=== PATIENT | female | born 1955 | race Caucasian/White ===

== ENCOUNTER → 2017-11-20 07:50 | Day surgery (SDC) | payer MEDICARE, MEDICAID ==
[~2017-11-20 07:50] MED LIST: Diazepam TAB(*) 5 MG ONE; Lidocaine 1% INJ* 10 MG/ML 30 ML SDV ONE; Midazolam* 1 MG/ML 5 ML VIAL (5 MG) ONE; ceFAZolin 2 GM in NS 0.9% 100 ml IVPB ONE; ceFAZolin VIAL 1 GM in NS *SYRINGE * * 10 ML ONE; fentaNYL* 50 MCG/ML 2 ML VIAL (100 MCG VIAL) ONE
[2017-11-20 11:26] VITALS: BP 140/77
--- NOTE | 2017-11-21 13:15 | OP ---
DATE OF OPERATION: 11/20/17 - [facility] CATH DATE OF : 59. SURGEON: Michael Leung MD. ANESTHESIA: Local anesthesia with conscious sedation. PRE-OP DIAGNOSES: Cardiomyopathy, ICD at elective replacement indicator. POST-OP DIAGNOSES: Cardiomyopathy, ICD at elective replacement indicator. OPERATIVE PROCEDURE: Single chamber ICD generator change. ESTIMATED BLOOD LOSS: Nil. COMPLICATIONS: None. INDICATION: The patient is a 62-year-old female with a history of non-ischemic cardiomyopathy, who had an ICD implanted in 2007. She has been followed in our office. Her ICD has reached elective replacement indicator and generator change was arranged. DESCRIPTION OF PROCEDURE: The patient was brought to the procedure room in a fasting state. Informed consent had been obtained prior to the procedure. All labs had been reviewed. The patient was placed supine on the procedure table. Her left deltopectoral area was cleaned and draped in the usual fashion. Lidocaine 1% was used for local anesthesia. Over her previous incision site, local anesthesia was infiltrated and a 4 cm was made. Blunt dissection was carried down to the fiber sheath. The fiber sheath was opened and the ICD was removed from the pocket. The ICD is a [employer] Model 1207, serial # [id number]. The ICD lead was tested and noted to be functioning normally. The ICD lead is a Riata lead, which is under advisement, the ICD lead is completely functioning normally. The patient had a new ICD attached appropriately to the ventricular lead. The new generator is a [employer] model 1357, serial # [id number]. The device was placed in the pocket. The surgical incision was closed in three layers. The patient returned to the holding area in stable condition. [id number]/[facility] #: [id number] [facility]
== END | disposition home or self-care (01) ==
LOC: CHICATH 07:50
PROVIDERS: ATTEND Specialist
DX: I42.9 Cardiomyopathy, unspecified (principal); Z95.810 Presence of automatic (implantable) cardiac defibrillator
CPT/HCPCS: 33249; 88300; 99156; 99157; A9270-GY; C1722; J0690; J2250; J3010

== ENCOUNTER 2018-06-22 08:57 | Emergency (ER) | payer MEDICARE ==
--- NOTE | 2018-06-22 09:04 | UC ---
Lower Extremity/Ankle HPI - HPI Summary HPI Summary: 63 yo with foot pain. Accidental fall 3 years ago causing initial injury. Has fallen recently. MD: MEHREEN; ICD hx noted. Nurse's note: R foot pain, has been getting worse in the past few weeks. States old injury in R foot, nothing recent. Pain is on top and bottom of foot, worse with ambulation. - History of Current Complaint Stated Complaint: FOOT PAIN Time Seen by Provider: 06/22/18 09:02 Hx Obtained From: Patient ?: No Aggravating Factor(s): Standing, Ambulation Able to Bear Weight: Yes - Allergies/Home Medications Allergies/Adverse Reactions: Allergies Allergy/AdvReac Type Severity Reaction Status Date / Time prednisone Allergy Anxiety Verified 06/22/18 09:17 ENVIRONMENTAL Allergy Intermediate Eyes Uncoded 06/22/18 09:17 Itchy/Swollen/Red/Watery SEASONAL Allergy Intermediate Runny Nose Uncoded 06/22/18 09:17 Home Medications: Home Medications ARIPiprazole TAB* [Abilify TAB*] 5 mg PO BEDTIME 06/22/18 [History Confirmed ] Cholecalciferol (Vitamin D3) [D 5000] 5,000 unit PO SEE INSTRUCTIONS 06/22/18 [ History Confirmed 06/22/18] Escitalopram Oxalate [Lexapro 20 mg] 20 mg PO DAILY 06/22/18 [History Confirmed 06/22/18] Multivitamins/Minerals TAB* [Theragran/minerals TAB*] 1 tab PO DAILY 06/22/18 [ History Confirmed 06/22/18] PMH/Surg Hx/FS Hx/Imm Hx - Additional Past Medical History Additional PMH: Angina, ND, ICD, bipolar; disabled. Previously Healthy: Yes Cardiovascular History: Cardiac Disease, Hypertension, Pacemaker/ICD Psychological History: Bipolar Disorder - Surgical History Surgical History: Yes Surgery Procedure, Year, and Place: partial hysterectomy - Family History Known Family History: Positive: Cardiac Disease, Other - arthritis - Social History Alcohol Use: None Substance Use Type: None Have You Smoked in the Last Year: No Review of Systems All Other Systems Reviewed And Are Negative: Yes Constitutional: Positive: Negative Skin: Positive: Negative Eyes: Positive: Negative ENT: Positive: Negative Respiratory: Positive: Negative Cardiovascular: Positive: Negative Gastrointestinal: Positive: Negative Genitourinary: Positive: Negative Motor: Positive: Negative Neurovascular: Positive: Negative Musculoskeletal: Positive: Arthralgia - above and below, Edema - right foot dorsum Neurological: Positive: Negative Psychological: Positive: Negative Is Patient Immunocompromised?: No Physical Exam Triage Information Reviewed: Yes Appearance: Well-Appearing Vital Signs Reviewed: Yes Eye Exam: Normal ENT Exam: Normal Dental Exam: Normal Neck exam: Normal Neck: Positive: 1 Respiratory Exam: Normal Respiratory: Positive: Chest non-tender, Lungs clear, Normal breath sounds Cardiovascular Exam: Normal Cardiovascular: Positive: RRR, Pulses Normal Abdominal Exam: Normal Abdomen Description: Positive: Nontender, No Organomegaly, Soft Musculoskeletal Exam: Normal Musculoskeletal: Positive: Edema @ - RIGHT FOOT, DORSUM; TENDER DORSUM AND VOLAR WELL MEDIAL ASPECT INFERIOR TO THE MEDIAL MALLEOLUS. Neurological Exam: Normal Psychological Exam: Normal Skin Exam: Normal Lower Extremity Course/Dx - Course Course Of Treatment: 63 yo with foot pain. Accidental fall 3 years ago causing initial injury. Has fallen recently. X RAY: HEEL SPURS. FIRST MTP OSTEOARTHRITIS. NO ACUTE OSSEOUS INJURY. Diagnosis is tendonitis dorsum of right foot; plantar fasciitis, volar. Patient given yuni, boot; will elevate use warm soaks in the morning; start using a walker, and follow up with own physician. - Differential Dx/Diagnosis Differential Diagnosis/HQI/PQRI: Fracture (Closed), Sprain, Strain, Tendonitis Provider Diagnosis: Tendonitis of ankle or foot Discharge - Sign-Out/Discharge Documenting (check all that apply): Post-Discharge Follow Up All imaging exams completed and their final reports reviewed: Yes - Discharge Plan Condition: Stable Disposition: HOME Patient Education Materials: Tendinitis (ED) Referrals: Magaly Bonner MD [Primary Care Provider] - Additional Instructions: WE DISCUSSED: You have tendonitis around the inner ankle on the right and on the top of your foot; you also have plantar fasciitis. Use yuni, boot, elevate; warm moist heat in the morning; ice during the day for pain as we discussed. Use walker.Occupational therapy to evaluate home situation. Recheck at any time for increased pain or disability. This may take 2-3 months to resolve fully. - Billing Disposition and Condition Condition: STABLE Disposition: Home
[2018-06-22 09:16] VITALS: BP 121/67
== END 2018-06-22 10:35 | disposition home or self-care (01) ==
LOC: UCEAST 08:57
DX: M65.879 Other synovitis and tenosynovitis, unspecified ankle and foot (principal); M77.31 Calcaneal spur, right foot; Z95.810 Presence of automatic (implantable) cardiac defibrillator
CPT/HCPCS: 99213; G0463

== ENCOUNTER 2018-09-28 11:50 | Inpatient (IN) | payer MEDICARE ==
--- NOTE | 2018-09-28 12:11 | ED ---
Psychiatric Complaint - HPI Summary HPI Summary: This patient is a 68 year old female presenting to [facility] with a chief complaint of SI. Patient states that she is going through several stresses in life and work. She states that it is too overwhelming and she just wants to . Patient states she has to think about living arrangements, what to do with her elderly cat, among other concerns. Patient has a psychiatrist and a therapist. Today, patient took 5 25mg vistaril pills instead of her usual dosage and her daughter brought her to the ED. - History Of Current Complaint Chief Complaint: EDOverdose Time Seen by Provider: 09/28/18 12:01 Hx Obtained From: Patient Onset/Duration: Still Present Timing: Constant Severity Currently: Moderate Character: Depressed Aggravating Factor(s): Nothing Alleviating Factor(s): Nothing Has Suicidal: Reports: Thoughts, Demonstrates Gesture - pill overdose - Allergies/Home Medications Allergies/Adverse Reactions: Allergies Allergy/AdvReac Type Severity Reaction Status Date / Time prednisone Allergy Anxiety Verified 06/22/18 09:17 ENVIRONMENTAL Allergy Intermediate Eyes Uncoded 06/22/18 09:17 Itchy/Swollen/Red/Watery SEASONAL Allergy Intermediate Runny Nose Uncoded 06/22/18 09:17 PMH/Surg Hx/FS Hx/Imm Hx Previously Healthy: No Endocrine/Hematology History: Denies: Hx Diabetes Cardiovascular History: Reports: Hx Angina, Hx Hypertension, Hx Pacemaker/ICD Respiratory History: Reports: Hx Asthma Denies: Hx Chronic Obstructive Pulmonary Disease (COPD) Opthamlomology History: Denies: Hx Legally Blind EENT History: Denies: Hx Deafness Psychiatric History: Reports: Hx Bipolar Disorder - Surgical History Surgery Procedure, Year, and Place: partial hysterectomy Infectious Disease History: No Infectious Disease History: Denies: Traveled Outside the [place] in Last 30 Days - Family History Known Family History: Positive: Cardiac Disease, Other - arthritis - Social History Alcohol Use: None Hx Substance Use: No Substance Use Type: Reports: None Hx Tobacco Use: No Smoking Status (MU): Never Smoked Tobacco Have You Smoked in the Last Year: No Review of Systems Negative: Fever Positive: Depressed, Other - SI All Other Systems Reviewed And Are Negative: Yes Physical Exam - Summary Physical Exam Summary: Appearance: well appearing, no pain distress Skin: warm, dry, reflects adequate perfusion Head/face: normal Eyes: EOMI, CHRISTIE ENT: mucous membranes moist Neck: supple, non-tender Respiratory: CTA, breath sounds present Cardiovascular: RRR, pulses symmetrical Abdomen: non-tender, soft Bowel Sounds: present Musculoskeletal: normal, strength/ROM intact Neuro: normal, sensory motor intact, A&Ox3 Psych: flat affect, mild anxiety, plan to overdose with pills Triage Information Reviewed: Yes Vital Signs On Initial Exam: Initial Vitals Temp Pulse Resp BP Pulse Ox 98.2 F 79 16 100/71 94 09/28/18 11:56 09/28/18 11:56 09/28/18 11:56 09/28/18 11:56 09/28/18 11:56 Vital Signs Reviewed: Yes Diagnostics - Vital Signs Vital Signs Temp Pulse Resp BP Pulse Ox 09/28/18 11:56 98.2 F 79 16 100/71 94 - Laboratory Result Diagrams: 09/28/18 12:21 09/28/18 12:21 Lab Statement: Any lab studies that have been ordered have been reviewed, and results considered in the medical decision making process. - EKG 1205 Cardiac Rate: NL - 72 BPM EKG Rhythm: Sinus Rhythm Summary of EKG Findings: An EKG, taken 1205, reveals NSR (72 BPM), normal axis, normal intervals, normal ST. Re-Evaluation - Re-Evaluation First Eval Re-Evaluation Time: 13:15 Change: Unchanged Comment: Patient continues to display no signs of her drug ingestion. Course/Dx - Course Course Of Treatment: Patient was medically evaluated and cleared for mental health evaluation. Following evaluation of his elected that the psychiatrist that she be admitted for further evaluation treatment. - Differential Dx/Clinical Impression Provider Diagnosis: Bipolar disorder - Physician Notifications Discussed Care Of Patient With: Candie Aguilar - Psychiatrist Time Discussed With Above Provider: 16:05 - Per E, Dr. Aguilar diagnoses the patient with bipolar disorder. Patient is agreeable to voluntary admission. Patient Is Medically Stable For: Psych Evaluation Discharge - Sign-Out/Discharge Documenting (check all that apply): Patient Departure Patient Received Moderate/Deep Sedation with Procedure: No - Discharge Plan Condition: Fair Disposition: ADMITTED TO [facility] - Billing Disposition and Condition Condition: FAIR Disposition: Admitted to [facility] - Attestation Statements Document Initiated by Scribe: Yes Documenting Scribe: Emmanuel Ham Provider For Whom Scribe is Documenting (Include Credential): Grey Patton MD Scribe Attestation: IEmmanuel, scribed for Grey Patton MD on 09/28/18 at 1858. Scribe Documentation Reviewed: Yes Provider Attestation: The documentation as recorded by the Emmanuel diaz accurately reflects the service I personally performed and the decisions made by me, Grey Patton MD Status of Scribe Document: Viewed
[2018-09-28 12:31] LABS: ABS Basophils 0.1 10^3/ul (0-0.2); ABS Eosinophils 0.1 10^3/ul (0-0.6); ABS Lymphocytes 1.8 10^3/ul (1.0-4.8); ABS Monocytes 0.6 10^3/ul (0-0.8); ABS Neutrophils 6.8 10^3/ul (1.5-7.7); ABS Nucleated RBC 0 10^3/ul; Hematocrit 43 % (33-41); Hemoglobin 14.7 g/dL (12.0-16.0); Lymphocyte % 18.9 %; Mean Corpuscular HGB Conc 34 g/dL (31-36); Mean Corpuscular Hemoglobin 30 pg (27-31); Mean Corpuscular Volume 89 fL (80-97); Mean Platelet Volume 9.8 fL (7.4-10.4); Nucleated Red Blood Cells % 0; Platelet Count 291 10^3/uL (150-450); Red Blood Count 4.87 10^6 /uL (3.70-4.87); Red Cell Distribution Width 13 % (10.5-15); White Blood Count 9.3 10^3/uL (3.5-10.8)
[2018-09-28 12:44] LABS: ALT 17 U/L (7-52); AST 19 U/L (13-39); Albumin 4.2 g/dL (3.2-5.2); Albumin/Globulin Ratio 1.6 (1-3); Alkaline Phosphatase 87 U/L (34-104); Anion Gap 7 mmol/L (2-11); BUN/Creatinine Ratio 18.1 (8-20); Blood Urea Nitrogen 13 mg/dL (6-24); CO2 Carbon Dioxide 27 mmol/L (22-32); Calcium 9.4 mg/dL (8.6-10.3); Chloride 107 mmol/L (101-111); EGFR African American 99.6 (>60); EGFR Non-African American 82.3 (>60); Globulin 2.6 g/dL (2-4); Glucose 102 mg/dL (70-100); Potassium 4.1 mmol/L (3.5-5.0); Sodium 141 mmol/L (135-145); Total Protein 6.8 g/dL (6.4-8.9)
[2018-09-28 13:11] LABS: Acetaminophen < 15 mcg/mL; Alcohol < 10 mg/dL (<10); Salicylate < 2.50 mg/dL (<30)
[2018-09-28] MEDS ORDERED: Ondansetron ODT TAB* 4 MG PO ONE (13:15)
[2018-09-28 13:27] LABS: TSH (Thyroid Stimulating Horm) 1.79 mcIU/mL (0.34-5.60)
[2018-09-28] MEDS: Potassium Chlor TAB* 20 MEQ TAB.ER PO SCH (20:56)
[2018-09-28] MEDS: Carvedilol TAB* 6.25 MG PO SCH (20:56)
[2018-09-28] MEDS: Al Hydrox/Mg Hydrox/Simet LIQ* 30 ML UDC PO PRN (20:58)
[2018-09-28] MEDS: Acetaminophen TAB* 325 MG PO PRN (20:59)
[2018-09-29] MEDS ORDERED: ESCITALOPRAM 10 MG PO SCH (09:00)
[2018-09-29] MEDS: BIOTIN PO SCH (09:10)
[2018-09-29] MEDS: Vitamin THERAPEUTIC TAB PO SCH (09:11)
[2018-09-29] MEDS: Multivitamins/Minerals TAB PO SCH (09:11)
[2018-09-29] MEDS: Pantoprazole TAB * 40 MG TAB PO SCH (09:11)
[2018-09-29] MEDS: Furosemide TAB* 40 MG PO SCH (09:11)
[2018-09-29] MEDS: Lisinopril TAB* 5 MG PO SCH (09:11)
[2018-09-29] MEDS: Carvedilol TAB* 6.25 MG PO SCH ×2 (09:11→22:09)
[2018-09-29] MEDS: Fluticasone NASAL SPRAY 50MCG* 16 gm SPRAY BTL BOTH NARES SCH (09:12)
[2018-09-29 10:51] LABS: Urine Appearance Cloudy; Urine Bacteria Absent (Absent); Urine Bilirubin Negative (Negative); Urine Blood 1+ (Negative); Urine Color Amber; Urine Glucose Negative (Negative); Urine Ketones Negative (Negative); Urine Nitrite Negative (Negative); Urine Protein Negative (Negative); Urine Red Blood Cell 3+(>10/hpf) (Absent); Urine Specific Gravity 1.023 (1.010-1.030); Urine Squamous Epithelial Cell Present (Absent); Urine Transitional Epithelial Present (Absent); Urine Urobilinogen Negative (Negative); Urine White Blood Cell 3+(>20/hpf) (Absent)
[2018-09-29 11:34] LABS: Urine Benzodiazepine Screen None Detected (None Detect); Urine Opiates Screen None Detected (None Detect)
--- NOTE | 2018-09-29 15:25 | HP ---
HISTORY AND PHYSICAL: DATE OF ADMISSION: 09/28/18. IDENTIFYING DATA: Tatianna is a 63-year-old mentally disabled female with at least 10 prior psychiatric hospitalizations and at least 3 or 4 at [facility], was brought into the emergency room by her daughter after she took 5 of Vistaril 25 mg tablets with an intention to commit suicide. CHIEF COMPLAINT: "That will probably end all my problems." HISTORY OF PRESENT ILLNESS: This is a 63-year-old female who has struggled with mental illness since she was 20 and was diagnosed with major depressive disorder, bipolar disorder, and so on. She came to the emergency room accompanied by her daughter after taking an intentional overdose on her prescribed medication due to overwhelming stress in her life, and there were also some frequent med changes by her psychiatrist because she has been complaining of worsening of depression. After a couple of trials with different antidepressants, she was back on Lexapro last week, but she reports that her mood has been very depressed, anxious. She also felt helpless, hopeless, worthless and was thinking about ending stress by killing herself. She was living with an elderly woman with a diagnosis of Alzheimer's disease and was not able to function and was getting overwhelmed with the situation there as well. There were times that she also thought that even if the patient falls and hurts herself, she did not want to care for her so that she dies, but she never thought about actively killing her patient. Recently, the patient's daughter took her way and she was left alone in the house and was told to find her own place. Now, she finds herself having no place to go. She has a old cat who also is a problem because no one wants to take the cat and she has nowhere to put the cat in as well. She did not know what to do and there were no place for her to turn in, so she decided to end her life. Her financial situation is also very bad. She got entangled with some bank loan and in recent past, her social security benefit was also reduced to a point that there is no way she can pay bills. PAST PSYCHIATRIC HISTORY: As mentioned in HPI, she had at least 10 prior psychiatric hospitalizations in different hospitals, including [facility], [facility] as well as [facility]. She was admitted here last time in 2009 and at [facility] in 2011 or 2012. She goes to [facility] and sees Dr. Watson and Jarret is her therapist. She is on multiple medications including Wellbutrin 150 mg daily and Abilify 5 mg at bedtime. PAST MEDICAL HISTORY: Remarkable for morbid obesity, hypertension, and asthma. MEDICATIONS: Her medical medications include: 1. Potassium. 2. Prilosec. 3. Multivitamins. 4. Antivert. 5. Prinivil. 6. Ibuprofen. 7. Lasix. 8. Flonase. 9. Vitamin D3. 10. Coreg. 11. Biotin. 12. Ventolin. ALLERGIES: PREDNISONE. I think it is more of an intolerance because it causes anxiety. She has an environmental allergy and seasonal allergies. FAMILY PSYCHIATRIC HISTORY: The patient reports that most of her family members have one or other form of mental illness, which includes OCD, depression , anxiety, anorexia, and so on. PERSONAL AND SOCIAL HISTORY: Tatianna was born and raised in [place]. She went to [employer] and graduated. After that, she worked sporadically, mostly in the healthcare field. She worked for 3 to 4 years at [employer] 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 She also receives some social security benefits. She has a daughter who is an adult and grown-up and very supportive of her. PHYSICAL EXAMINATION GENERAL: Tatianna is a morbidly obese, appropriately dressed, fairly groomed female who is sitting on her bed, it does not appear to be in any kind of acute physical distress. VITAL SIGNS: Shows a blood pressure of 100/71, pulse 79, respirations 16, temperature 98.2 Fahrenheit, pulse ox 94% no room air. HEENT: Head: Normocephalic and atraumatic. Face: Within normal limits. Eyes : EOMI x2 and PERRLA. Ears: Clean ear canals with intact tympanic membrane. Hearing is grossly intact. Oral cavity within normal limits with good oral hygiene. Normal pharynx. NECK: Supple with midline trachea. No adenopathy. No thyromegaly. No bruits. CHEST: Equal air entry. No wheezing or crackles. CARDIOVASCULAR: Regular heart rate, S1 and S2 only. No murmurs or gallops. ABDOMEN: Obese, hard to auscultate but is nontender. No organomegaly. Bowel sounds positive. MUSCULOSKELETAL: Obese extremities, but pulse is palpable in all extremities. Joint movements within normal limits. NEUROLOGICAL EXAM: No sensory deficits. Cranial nerves II through XII grossly intact. MENTAL STATUS EXAMINATION: Tatianna is alert and oriented to time, place, and person, makes intermittent eye contact. Speech is soft, but goal-directed. Describes her mood as depressed. Observed affect appears to be dysphoric and sad. No evidence or reports of perceptual disturbances or delusions. She is calm, pleasant and cooperative. Intelligence appears to be average as evidenced by her vocabulary, educational background and fund of knowledge. Memory functions are intact in all spheres. Insight and judgment appear to be adequate. SUMMARY: This 63-year-old mentally disabled female with at least 10 prior psychiatric hospitalizations, including at least couple long-term hospitalizations in [facility], was doing well in the community until she suffered some psychosocial setbacks and loss of her housing and income. She is overwhelmed with the situation and wanted to end her life by overdosing on her pills. She continues to be passively suicidal at this time. DIAGNOSTIC IMPRESSION: Mental Health Diagnoses: 1. Bipolar disorder, current episode, depressed without psychosis. 2. Adjustment disorder with depressed mood. Physical Health Diagnoses: 1. Morbid obesity. 2. Hypertension. 3. Asthma. TREATMENT RECOMMENDATIONS: Tatianna will remain hospitalized on the [facility] for her safety and stabilization of acute symptoms. Her code status will remain full. Supportive milieu individual and group therapy will be initiated and she will be encouraged to participate in all those. I will continue on her current medications and defer any adjustment to medications or change of medications to her assigned psychiatrist on the unit, while I will adjust the dose of her Lexapro to 20 mg daily. I will also resume her Abilify because she reports that she has been stable on that medication for a while. [id number]/[facility] #: [id number] DENISSE
[2018-09-29] MEDS ORDERED: ARIPiprazole TAB* 5 MG PO SCH (21:00)
[2018-09-29] MEDS: Potassium Chlor TAB* 20 MEQ TAB.ER PO SCH (22:09)
[2018-09-30] MEDS: Carvedilol TAB* 6.25 MG PO SCH ×2 (08:50→20:28)
[2018-09-30] MEDS: Furosemide TAB* 40 MG PO SCH (08:51)
[2018-09-30] MEDS: Lisinopril TAB* 5 MG PO SCH (08:51)
[2018-09-30] MEDS: Multivitamins/Minerals TAB PO SCH (08:51)
[2018-09-30] MEDS: Pantoprazole TAB * 40 MG TAB PO SCH (08:51)
[2018-09-30] MEDS: Fluticasone NASAL SPRAY 50MCG* 16 gm SPRAY BTL BOTH NARES SCH (08:52)
[2018-09-30] MEDS: BIOTIN PO SCH (08:54)
[2018-09-30] MEDS: Acetaminophen TAB* 325 MG PO PRN (08:54)
[2018-09-30] MEDS ORDERED: Citalopram TAB* 20 MG PO SCH (09:00)
[2018-09-30] MEDS: Cholecalciferol TAB* 1000 UNITS PO SCH (12:45)
[2018-09-30] MEDS: Vitamin THERAPEUTIC TAB PO SCH (12:46)
--- NOTE | 2018-09-30 16:16 | PN ---
Subjective - Subjective Date of Service: 09/30/18 Service Type: [id number] Hosp care 15 min low complexity Subjective: Patient presents as dysphoric with flat affect, speech latencies and psychomotor retardation. She endorses anxiety in the sense of feeling overwhelmed with psychosocial stressors. She states she asked her outpatient psychiatrist to stop wellbutrin and sertraline due to adding aripiprazole and feeling overmedicated. She states rexulti caused her to feel "buzzy" and trintellix seemed to lead to worsening depression. Objective - General Observations Appearance: Well Groomed Stature: Overweight Posture: Slumped Eye Contact: Average Behavior/Activity: Slowed - Interaction Observations Attitude Towards Examiner: Cooperative Stated Mood: Dysphoric Affect: Flat Speech Pattern/Tone: Delayed, Quiet Volume Thought Process: Coherent, Impoverished Perception: WNL Thought Content: Depressive, Self-Deprecatory Thought Process: Lethality: Passive Wish Hallucination Type: Denies Delusion Type: Denies - Cognitive Function Orientation: A&O x 4 Level of Consciousness: Alert Cognition: WNL Estimated Intelligence: Normal Insight: WNL Judgment Within Normal Limits: No Ability to Make Reasonable Decisions: Moderately Impaired - Medication Compliance Cooperative with Inpatient Medication Regimen: Yes - Group Participation Participates in Group Activities: Yes Assessment - Assessment Merits Inpatient Hospitalization: For Immediate Safety, For Stabilization Inpatient DSM-V Dx: F31.4 Clinical Impression: 63yo wf, mentally disabled with at least 10 prior psychiatric hospitalizations who presented to ED with c/o increased depression and suicidal ideation with plan to overdose on her pills. She was doing well until increase in psychosocial stressors, including difficult housing situation. She merits hospitalization for immediate safety and stabilization. Plan - Plan Treatment Plan: Name: ERA PAN Birthdate: 1955 [id number] continue acute intensive psychiatric treatment increase aripiprazole to 7.5mg daily, change citalopram to escitalopram 20mg. obtain fasting a1c and lipid panel in am. Continued Medication Management: Start Medication Medications: Current Medications Acetaminophen (Tylenol Tab*) 650 mg PO Q4H PRN PRN Reason: PAIN or TEMP > 101 F Last Admin: 09/30/18 08:54 Dose: 650 mg Al Hydrox/Mg Hydrox/Simethicone (Maalox Plus*) 30 ml PO Q4H PRN PRN Reason: INDIGESTION Last Admin: 09/28/18 20:58 Dose: 30 ml Aripiprazole (Abilify Tab*) 7.5 mg PO BEDTIME [facility] Carvedilol (Coreg Tab*) 12.5 mg PO BID [facility] Last Admin: 09/30/18 08:50 Dose: 12.5 mg Cholecalciferol (Vitamin D Tab*) 5,000 units PO MoTh@0900 [facility] Last Admin: 09/30/18 12:45 Dose: Not Given Escitalopram Oxalate (Lexapro *) 20 mg PO DAILY [facility] Fluticasone Propionate (Flonase Nasal [place] 50mcg*) 1 spray BOTH NARES DAILY [facility] Last Admin: 09/30/18 08:52 Dose: 1 spray Furosemide (Lasix Tab*) 40 mg PO DAILY [facility] Last Admin: 09/30/18 08:51 Dose: 40 mg Lisinopril (Prinivil Tab*) 5 mg PO DAILY [facility] Last Admin: 09/30/18 08:51 Dose: 5 mg Multivitamins (Theragran Tab*) 1 tab PO DAILY [facility] Last Admin: 09/30/18 12:46 Dose: Not Given Multivitamins/Minerals (Theragran/Minerals Tab*) 1 tab PO DAILY [facility] Last Admin: 09/30/18 08:51 Dose: 1 tab Biotin 1 dose PO DAILY [facility] Last Admin: 09/30/18 08:54 Dose: Not Given Pantoprazole Sodium (Protonix Tab*) 40 mg PO DAILY [facility] Last Admin: 09/30/18 08:51 Dose: 40 mg Potassium Chloride (Klor Con Er Tab*) 20 meq PO BEDTIME [facility] Last Admin: 09/29/18 22:09 Dose: 20 meq - Discharge Plan Discharge Plan: Inpatient Hospitalization
[2018-09-30] MEDS: Al Hydrox/Mg Hydrox/Simet LIQ* 30 ML UDC PO PRN (17:37)
[2018-09-30] MEDS: ARIPiprazole TAB* 5 MG PO SCH (20:28)
[2018-09-30] MEDS: Potassium Chlor TAB* 20 MEQ TAB.ER PO SCH (20:28)
[2018-10-01 07:22] LABS: HDL Cholesterol 51.4 mg/dL
[2018-10-01] MEDS: Multivitamins/Minerals TAB PO SCH (08:50)
[2018-10-01] MEDS: Vitamin THERAPEUTIC TAB PO SCH (08:50)
[2018-10-01] MEDS: Lisinopril TAB* 5 MG PO SCH (08:50)
[2018-10-01] MEDS: Pantoprazole TAB * 40 MG TAB PO SCH (08:51)
[2018-10-01] MEDS: Fluticasone NASAL SPRAY 50MCG* 16 gm SPRAY BTL BOTH NARES SCH (08:51)
[2018-10-01] MEDS: Escitalopram * 20 MG TABLET PO SCH (08:51)
[2018-10-01] MEDS: BIOTIN PO SCH (08:54)
[2018-10-01] MEDS: Furosemide TAB* 40 MG PO SCH (08:54)
[2018-10-01] MEDS: Carvedilol TAB* 6.25 MG PO SCH ×2 (10:48→21:11)
[2018-10-01] MEDS: Acetaminophen TAB* 325 MG PO PRN (12:25)
--- NOTE | 2018-10-01 14:10 | PN ---
Subjective - Subjective Date of Service: 10/01/18 Service Type: [id number] Hosp care 15 min low complexity Subjective: Patient reports her mood is "blah." She endorses upset stomach, sore throat and headache. She states she ate gordon for dinner last night, which is likely the reason for stomach upset. She denies noticing effects from change in medications. She reports sleep is "ok" and that she woke a few times to use the bathroom and such but was able to return to sleep without difficulty. She reports journaling in the form of prayer is helpful. She is receptive to suggestions of increased socialization while on the unit and in the community. fasting labs obtained this morning: [id number] normal at 5.2; triglycerides 129, cholesterol 202, LDL 125, HDL 51.4 Objective - General Observations Appearance: Well Groomed Stature: Overweight Posture: Slumped Eye Contact: Average Behavior/Activity: Slowed - Interaction Observations Attitude Towards Examiner: Cooperative Stated Mood: Dysphoric Affect: Blunted Speech Pattern/Tone: Clear, Delayed, Quiet Volume Thought Process: Impoverished Perception: WNL Thought Content: Depressive, Self-Deprecatory Thought Process: Lethality: Passive Wish Hallucination Type: Denies Delusion Type: Denies - Cognitive Function Orientation: A&O x 4 Level of Consciousness: Alert Cognition: WNL Estimated Intelligence: Normal Insight: WNL Judgment Within Normal Limits: No Ability to Make Reasonable Decisions: Moderately Impaired - Medication Compliance Cooperative with Inpatient Medication Regimen: Yes - Group Participation Participates in Group Activities: Partial Assessment - Assessment Merits Inpatient Hospitalization: For Immediate Safety, For Stabilization Inpatient DSM-V Dx: F31.4 Clinical Impression: 63yo wf, mentally disabled with at least 10 prior psychiatric hospitalizations who presented to ED with c/o increased depression and suicidal ideation with plan to overdose on her pills. She was doing well until increase in psychosocial stressors, including difficult housing situation. She merits hospitalization for immediate safety and stabilization. Plan - Plan Treatment Plan: Name: ERA PAN Birthdate: 1955 [id number] continue acute intensive psychiatric treatment continue aripiprazole 7.5mg daily and escitalopram 20mg. discharge planning to include outpatient providers. Medications: Current Medications Acetaminophen (Tylenol Tab*) 650 mg PO Q4H PRN PRN Reason: PAIN or TEMP > 101 F Last Admin: 10/01/18 12:25 Dose: 650 mg Al Hydrox/Mg Hydrox/Simethicone (Maalox Plus*) 30 ml PO Q4H PRN PRN Reason: INDIGESTION Last Admin: 09/30/18 17:37 Dose: 30 ml Aripiprazole (Abilify Tab*) 7.5 mg PO BEDTIME [facility] Last Admin: 09/30/18 20:28 Dose: 7.5 mg Carvedilol (Coreg Tab*) 12.5 mg PO BID [facility] Last Admin: 10/01/18 10:48 Dose: Not Given Cholecalciferol (Vitamin D Tab*) 5,000 units PO MoTh@0900 [facility] Last Admin: 09/30/18 12:45 Dose: Not Given Escitalopram Oxalate (Lexapro *) 20 mg PO DAILY [facility] Last Admin: 10/01/18 08:51 Dose: 20 mg Fluticasone Propionate (Flonase Nasal [place] 50mcg*) 1 spray BOTH NARES DAILY [facility] Last Admin: 10/01/18 08:51 Dose: 1 spray Furosemide (Lasix Tab*) 40 mg PO DAILY [facility] Last Admin: 10/01/18 08:54 Dose: Not Given Lisinopril (Prinivil Tab*) 5 mg PO DAILY [facility] Last Admin: 10/01/18 08:50 Dose: 5 mg Multivitamins (Theragran Tab*) 1 tab PO DAILY [facility] Last Admin: 10/01/18 08:50 Dose: 1 tab Multivitamins/Minerals (Theragran/Minerals Tab*) 1 tab PO DAILY [facility] Last Admin: 10/01/18 08:50 Dose: 1 tab Biotin 1 dose PO DAILY [facility] Last Admin: 10/01/18 08:54 Dose: Not Given Pantoprazole Sodium (Protonix Tab*) 40 mg PO DAILY [facility] Last Admin: 10/01/18 08:51 Dose: 40 mg Potassium Chloride (Klor Con Er Tab*) 20 meq PO BEDTIME [facility] Last Admin: 09/30/18 20:28 Dose: 20 meq - Discharge Plan Discharge Plan: Inpatient Hospitalization [facility]
[2018-10-01] MEDS: Al Hydrox/Mg Hydrox/Simet LIQ* 30 ML UDC PO PRN (18:37)
[2018-10-01] MEDS: Potassium Chlor TAB* 20 MEQ TAB.ER PO SCH (21:08)
[2018-10-01] MEDS: ARIPiprazole TAB* 5 MG PO SCH (21:09)
[2018-10-02] MEDS: Carvedilol TAB* 6.25 MG PO SCH ×2 (08:43→21:05)
[2018-10-02] MEDS: Acetaminophen TAB* 325 MG PO PRN ×2 (08:43→14:28)
[2018-10-02] MEDS: Vitamin THERAPEUTIC TAB PO SCH (08:44)
[2018-10-02] MEDS: Multivitamins/Minerals TAB PO SCH (08:44)
[2018-10-02] MEDS: Pantoprazole TAB * 40 MG TAB PO SCH (08:44)
[2018-10-02] MEDS: Escitalopram * 20 MG TABLET PO SCH (08:45)
[2018-10-02] MEDS: Lisinopril TAB* 5 MG PO SCH (08:45)
[2018-10-02] MEDS: BIOTIN PO SCH (08:46)
[2018-10-02] MEDS: Fluticasone NASAL SPRAY 50MCG* 16 gm SPRAY BTL BOTH NARES SCH (08:46)
[2018-10-02] MEDS: Furosemide TAB* 40 MG PO SCH (08:46)
[2018-10-02] MEDS: Al Hydrox/Mg Hydrox/Simet LIQ* 30 ML UDC PO PRN ×3 (13:09→22:01)
--- NOTE | 2018-10-02 14:48 | PN ---
Subjective - Subjective Date of Service: 10/02/18 Service Type: [id number] Hosp care 15 min low complexity Subjective: Patient reports feeling better than yesterday. She states it was helpful to speak with her daughter, as she was feeling sad that she had not received calls or visitors. We discussed cognitive distortions, such as mindreading. She reports feeling overwhelmed due to various tasks necessary for housing. She is receptive to suggestion of list-making and completing tasks to prevent further depressed mood and anxiety. Objective - General Observations Appearance: Well Groomed Stature: Overweight Posture: WNL Eye Contact: Average Behavior/Activity: WNL - Interaction Observations Attitude Towards Examiner: Cooperative Stated Mood: Euthymic Affect: Full Speech Pattern/Tone: Clear, Appropriate, Normal Volume Thought Process: Coherent, Goal Directed Perception: WNL Thought Content: WNL Thought Process: Lethality: Passive Wish Hallucination Type: Denies Delusion Type: Denies - Cognitive Function Orientation: A&O x 4 Level of Consciousness: Alert Cognition: WNL Estimated Intelligence: Normal Insight: WNL Judgment Within Normal Limits: No Ability to Make Reasonable Decisions: Moderately Impaired - Medication Compliance Cooperative with Inpatient Medication Regimen: Yes - Group Participation Participates in Group Activities: Yes Assessment - Assessment Merits Inpatient Hospitalization: For Immediate Safety, For Stabilization, For Discharge Planning, Pending Safe DC Plan Inpatient DSM-V Dx: F31.4 Clinical Impression: 63yo wf, mentally disabled with at least 10 prior psychiatric hospitalizations who presented to ED with c/o increased depression and suicidal ideation with plan to overdose on her pills. She was doing well until increase in psychosocial stressors, including difficult housing situation. She merits hospitalization for immediate safety and stabilization. Plan - Plan Treatment Plan: Name: ERA PAN Birthdate: 1955 [id number] continue acute intensive psychiatric treatment. may decrease to q30min and allow staff pass. continue current medications. discharge planning to include outpatient providers and housing resources. Continued Medication Management: Continue Outpt Medication Medications: Current Medications Acetaminophen (Tylenol Tab*) 650 mg PO Q4H PRN PRN Reason: PAIN or TEMP > 101 F Last Admin: 10/02/18 14:28 Dose: 650 mg Al Hydrox/Mg Hydrox/Simethicone (Maalox Plus*) 30 ml PO Q4H PRN PRN Reason: INDIGESTION Last Admin: 10/02/18 13:09 Dose: 30 ml Aripiprazole (Abilify Tab*) 7.5 mg PO BEDTIME [facility] Last Admin: 10/01/18 21:09 Dose: 7.5 mg Carvedilol (Coreg Tab*) 12.5 mg PO BID [facility] Last Admin: 10/02/18 08:43 Dose: 12.5 mg Cholecalciferol (Vitamin D Tab*) 5,000 units PO MoTh@0900 [facility] Last Admin: 09/30/18 12:45 Dose: Not Given Escitalopram Oxalate (Lexapro *) 20 mg PO DAILY [facility] Last Admin: 10/02/18 08:45 Dose: 20 mg Fluticasone Propionate (Flonase Nasal [place] 50mcg*) 1 spray BOTH NARES DAILY [facility] Last Admin: 10/02/18 08:46 Dose: 1 spray Furosemide (Lasix Tab*) 40 mg PO DAILY [facility] Last Admin: 10/02/18 08:46 Dose: 40 mg Lisinopril (Prinivil Tab*) 5 mg PO DAILY [facility] Last Admin: 10/02/18 08:45 Dose: 5 mg Multivitamins (Theragran Tab*) 1 tab PO DAILY [facility] Last Admin: 10/02/18 08:44 Dose: 1 tab Multivitamins/Minerals (Theragran/Minerals Tab*) 1 tab PO DAILY [facility] Last Admin: 10/02/18 08:44 Dose: 1 tab Biotin 1 dose PO DAILY [facility] Last Admin: 10/02/18 08:46 Dose: Not Given Pantoprazole Sodium (Protonix Tab*) 40 mg PO DAILY [facility] Last Admin: 10/02/18 08:44 Dose: 40 mg Potassium Chloride (Klor Con Er Tab*) 20 meq PO BEDTIME [facility] Last Admin: 10/01/18 21:08 Dose: Not Given - Discharge Plan Discharge Plan: [facility]
[2018-10-02] MEDS: ARIPiprazole TAB* 5 MG PO SCH (21:05)
[2018-10-02] MEDS: Potassium Chlor TAB* 20 MEQ TAB.ER PO SCH (21:05)
[2018-10-03] MEDS: Multivitamins/Minerals TAB PO SCH (10:14)
[2018-10-03] MEDS: Lisinopril TAB* 5 MG PO SCH (10:14)
[2018-10-03] MEDS: Vitamin THERAPEUTIC TAB PO SCH (10:14)
[2018-10-03] MEDS: Pantoprazole TAB * 40 MG TAB PO SCH (10:15)
[2018-10-03] MEDS: Escitalopram * 20 MG TABLET PO SCH (10:15)
[2018-10-03] MEDS: Carvedilol TAB* 6.25 MG PO SCH ×2 (10:15→20:54)
[2018-10-03] MEDS: Fluticasone NASAL SPRAY 50MCG* 16 gm SPRAY BTL BOTH NARES SCH (10:16)
[2018-10-03] MEDS: Furosemide TAB* 40 MG PO SCH (10:16)
[2018-10-03] MEDS: BIOTIN PO SCH (10:18)
[2018-10-03] MEDS: Cholecalciferol TAB* 1000 UNITS PO SCH (10:18)
[2018-10-03] MEDS: Acetaminophen TAB* 325 MG PO PRN ×2 (10:22→14:19)
--- NOTE | 2018-10-03 14:22 | PN ---
Subjective - Subjective Date of Service: 10/03/18 Service Type: [id number] Hosp care 15 min low complexity Subjective: Patient reports anxiousness and feeling overwhelmed. She exhibits avoidance behavior in regards to discharge planning. She is receptive to therapeutic suggestions of making lists and goal-setting small tasks. Will increase aripiprazole to assess effect. Objective - General Observations Appearance: Well Groomed Stature: Overweight Posture: WNL Eye Contact: Average Behavior/Activity: WNL - Interaction Observations Attitude Towards Examiner: Cooperative Stated Mood: Anxious Affect: Full Speech Pattern/Tone: Clear, Appropriate, Normal Volume Thought Process: Coherent Perception: WNL Thought Content: WNL Hallucination Type: None Delusion Type: None - Cognitive Function Orientation: A&O x 4 Level of Consciousness: Alert Cognition: WNL Estimated Intelligence: Normal Insight: WNL Judgment Within Normal Limits: Yes - Medication Compliance Cooperative with Inpatient Medication Regimen: Yes - Group Participation Participates in Group Activities: Yes Assessment - Assessment Merits Inpatient Hospitalization: For Immediate Safety, For Stabilization, For Discharge Planning Inpatient DSM-V Dx: F31.4 Clinical Impression: 63yo wf, mentally disabled with at least 10 prior psychiatric hospitalizations who presented to ED with c/o increased depression and suicidal ideation with plan to overdose on her pills. She was doing well until increase in psychosocial stressors, including difficult housing situation. She merits hospitalization for immediate safety and stabilization. Plan - Plan Treatment Plan: Name: ERA PAN Birthdate: 1955 [id number] continue acute intensive psychiatric treatment. may decrease to q30min and allow staff pass. increase aripiprazole to 10mg. continue other medications. discharge planning to include outpatient providers and housing resources. Medications: Current Medications Acetaminophen (Tylenol Tab*) 650 mg PO Q4H PRN PRN Reason: PAIN or TEMP > 101 F Last Admin: 10/03/18 14:19 Dose: 650 mg Al Hydrox/Mg Hydrox/Simethicone (Maalox Plus*) 30 ml PO Q4H PRN PRN Reason: INDIGESTION Last Admin: 10/02/18 22:01 Dose: 30 ml Aripiprazole (Abilify Tab*) 7.5 mg PO BEDTIME [facility] Last Admin: 10/02/18 21:05 Dose: 7.5 mg Carvedilol (Coreg Tab*) 12.5 mg PO BID [facility] Last Admin: 10/03/18 10:15 Dose: 12.5 mg Cholecalciferol (Vitamin D Tab*) 5,000 units PO MoTh@0900 [facility] Last Admin: 10/03/18 10:18 Dose: 5,000 units Escitalopram Oxalate (Lexapro *) 20 mg PO DAILY [facility] Last Admin: 10/03/18 10:15 Dose: 20 mg Fluticasone Propionate (Flonase Nasal [place] 50mcg*) 1 spray BOTH NARES DAILY [facility] Last Admin: 10/03/18 10:16 Dose: 1 spray Furosemide (Lasix Tab*) 40 mg PO DAILY [facility] Last Admin: 10/03/18 10:16 Dose: 40 mg Lisinopril (Prinivil Tab*) 5 mg PO DAILY [facility] Last Admin: 10/03/18 10:14 Dose: 5 mg Multivitamins (Theragran Tab*) 1 tab PO DAILY [facility] Last Admin: 10/03/18 10:14 Dose: 1 tab Multivitamins/Minerals (Theragran/Minerals Tab*) 1 tab PO DAILY [facility] Last Admin: 10/03/18 10:14 Dose: 1 tab Biotin 1 dose PO DAILY [facility] Last Admin: 10/03/18 10:18 Dose: Not Given Pantoprazole Sodium (Protonix Tab*) 40 mg PO DAILY [facility] Last Admin: 10/03/18 10:15 Dose: 40 mg Potassium Chloride (Klor Con Er Tab*) 20 meq PO BEDTIME [facility] Last Admin: 10/02/18 21:05 Dose: 20 meq - Discharge Plan Discharge Plan: [facility]patient [facility]
[2018-10-03] MEDS ORDERED: Benzocaine/Menthol LOZ* 1 LOZENGE MT PRN (15:59)
[2018-10-03] MEDS: Al Hydrox/Mg Hydrox/Simet LIQ* 30 ML UDC PO PRN ×2 (19:37→23:20)
[2018-10-03] MEDS: Potassium Chlor TAB* 20 MEQ TAB.ER PO SCH (20:54)
[2018-10-03] MEDS ORDERED: ARIPiprazole TAB* 5 MG PO SCH (21:00)
[2018-10-04 08:42] VITALS: BP 90/34
[2018-10-04] MEDS: Vitamin THERAPEUTIC TAB PO SCH (09:15)
[2018-10-04] MEDS: Pantoprazole TAB * 40 MG TAB PO SCH (09:15)
[2018-10-04] MEDS: Lisinopril TAB* 5 MG PO SCH (09:15)
[2018-10-04] MEDS: Carvedilol TAB* 6.25 MG PO SCH ×2 (09:16→20:47)
[2018-10-04] MEDS: Escitalopram * 20 MG TABLET PO SCH (09:16)
[2018-10-04] MEDS: Furosemide TAB* 40 MG PO SCH (09:16)
[2018-10-04] MEDS: Fluticasone NASAL SPRAY 50MCG* 16 gm SPRAY BTL BOTH NARES SCH (09:16)
[2018-10-04] MEDS: BIOTIN PO SCH (09:20)
[2018-10-04] MEDS: Multivitamins/Minerals TAB PO SCH (09:20)
[2018-10-04] MEDS: Acetaminophen TAB* 325 MG PO PRN (13:00)
--- NOTE | 2018-10-04 13:50 | DCNOTE ---
Subjective - Subjective Service Types: [id number] Hosp DC Day Mgmt simple under 30 min Discharge Date: 10/04/18 Subjective: Patient reports improved mood and denies SI or passive wish. She has been actively participating in discharge planning. She endorses mild akathesia with increased dose of aripiprazole, agrees to return to 7mg. She states she prefers 7mg to 7.5mg due to not having a pill cutter. Patient states understanding of outpatient recommendations. Objective - General Observations Appearance: Well Groomed Stature: Overweight Posture: WNL Eye Contact: Average Behavior/Activity: WNL - Interaction Observations Attitude Towards Examiner: Cooperative Stated Mood: Euthymic Affect: Full Speech Pattern/Tone: Clear, Appropriate, Normal Volume Thought Process: Coherent, Goal Directed Perception: WNL Thought Content: WNL Hallucination Type: None Delusion Type: None - Cognitive Function Orientation: A&O x 4 Level of Consciousness: Alert Cognition: WNL Estimated Intelligence: Normal Insight: WNL Judgment Within Normal Limits: Yes - Medication Compliance Cooperative with Inpatient Medication Regimen: Yes - Group Participation Participates in Group Activities: Yes DC Assessment - Assessment Clinical Impression: 63yo wf, mentally disabled with at least 10 prior psychiatric hospitalizations who presented to ED with c/o increased depression and suicidal ideation with plan to overdose on her pills. She was doing well until increase in psychosocial stressors, including difficult housing situation. Since hospitalization, patient has been receptive to assistance with coordination of housing resources and has identified family supports. Merits Inpatient Hospitalization: No Clear for Discharge: Adequate Clinical Respons, Acceptable Safety Profile Inpatient DSM-V Dx: F31.4 Discharge Planning - Discharge Planning Discharge Plan: Outpatient Follow Up [facility] Recommendations for Continuing Care: Medication Management, Psychotherapy, Primary Care Followup Medications: Current Medications Aripiprazole (Abilify Tab*) 10 mg PO BEDTIME [facility] Last Admin: 10/03/18 20:53 Dose: 10 mg Carvedilol (Coreg Tab*) 12.5 mg PO BID [facility] Last Admin: 10/04/18 09:16 Dose: 12.5 mg Cholecalciferol (Vitamin D Tab*) 5,000 units PO MoTh@0900 [facility] Last Admin: 10/03/18 10:18 Dose: 5,000 units Escitalopram Oxalate (Lexapro *) 20 mg PO DAILY [facility] Last Admin: 10/04/18 09:16 Dose: 20 mg Fluticasone Propionate (Flonase Nasal [place] 50mcg*) 1 spray BOTH NARES DAILY [facility] Last Admin: 10/04/18 09:16 Dose: 1 spray Furosemide (Lasix Tab*) 40 mg PO DAILY [facility] Last Admin: 10/04/18 09:16 Dose: 40 mg Lisinopril (Prinivil Tab*) 5 mg PO DAILY [facility] Last Admin: 10/04/18 09:15 Dose: 5 mg Biotin 1 dose PO DAILY [facility] Last Admin: 10/04/18 09:20 Dose: Not Given Pantoprazole Sodium (Protonix Tab*) 40 mg PO DAILY [facility] Last Admin: 10/04/18 09:15 Dose: 40 mg Potassium Chloride (Klor Con Er Tab*) 20 meq PO BEDTIME [facility] Last Admin: 10/03/18 20:54 Dose: 20 meq Discharge Planning: Prescriptions provided for discharge [x] Yes [] No Follow up care details as per social work arrangements: [facility], Dr Bonner Patient response to discharge plan: [x] eager for discharge [x] agreeable with discharge plan [] ambivalent about discharge [] disagrees with discharge today
[2018-10-04] MEDS: Potassium Chlor TAB* 20 MEQ TAB.ER PO SCH (20:44)
[2018-10-04] MEDS ORDERED: ARIPiprazole TAB* 2 MG PO SCH (21:00)
[2018-10-04] MEDS ORDERED: ARIPiprazole TAB* 5 MG PO SCH (21:00)
== END 2018-10-04 20:45 | disposition home or self-care (01) | DRG 885 ==
LOC: ED 11:50 → BSU 15:59
PROVIDERS: ADMIT Psychiatry & Neurology Psychiatry; ATTEND Psychiatry & Neurology Psychiatry
DX: F31.4 Bipolar disorder, current episode depressed, severe, without psychotic features (principal); Z68.41 Body mass index [BMI] 40.0-44.9, adult; I10 Essential (primary) hypertension; J45.909 Unspecified asthma, uncomplicated; F43.21 Adjustment disorder with depressed mood; T43.592A Poisoning by other antipsychotics and neuroleptics, intentional self-harm, initial encounter; Y92.009 Unspecified place in unspecified non-institutional (private) residence as the place of occurrence of the external cause; Z95.0 Presence of cardiac pacemaker; Z82.49 Family history of ischemic heart disease and other diseases of the circulatory system; Z88.8 Allergy status to other drugs, medicaments and biological substances; Z82.61 Family history of arthritis; Z90.711 Acquired absence of uterus with remaining cervical stump; Z81.8 Family history of other mental and behavioral disorders
CPT/HCPCS: 36415; 80053; 80061; 80307; 80320; 80329; 81003; 81015; 83036; 84443; 85025; 87086; 93005; 99222; 99231; 99238; 99285; A9270-GY; G0480

== ENCOUNTER 2023-05-01 05:30 | Observation (INO) ==
[2023-05-01] MEDS ORDERED: Lactated Ringers 1000 ml BAG 1,000 ML IV SCH (06:00)
[2023-05-01] MEDS ORDERED: Buffered Lidocaine 1% SYRIN 1 ml INTRADERM ONE (06:00)
[2023-05-01] MEDS ORDERED: ceFAZolin 2 GM PREMIX 2 GM/50 ML BAG ONE (06:05)
[2023-05-01] MEDS ORDERED: Bupivacaine 0.25% SDV 30 ML ONE (07:07)
[2023-05-01] MEDS ORDERED: fentaNYL 100 mcg/2 ml 50 MCG/ML VIAL ONE (07:13)
[2023-05-01] MEDS ORDERED: Midazolam 2 mg/2 ml VIAL 1 mg/ml 2 ml VIAL (2 mg) ONE (07:13)
[2023-05-01] MEDS ORDERED: Bupivacaine 0.5% SDV PF 30ML VIAL ONE ×2 (07:16→08:06)
[2023-05-01] MEDS ORDERED: ROPIVACAINE 5 MG/ML 30 ML BTL (0.5%) ONE (07:18)
[2023-05-01] MEDS ORDERED: Ondansetron 4 mg VIAL 2 MG/ML 2 ml VIAL ONE ×2 (08:29→11:32)
[2023-05-01] MEDS ORDERED: Phenylephrine IV 10 MG/ML 1 ml VIAL ONE (08:32)
[2023-05-01] MEDS ORDERED: Lidocaine 2% PF 5 ML VIAL ONE (09:10)
[2023-05-01] MEDS ORDERED: Propofol 10 MG/ML 20 ML BTL ONE (09:10)
[2023-05-01] MEDS ORDERED: Naloxone 0.4 mg VIAL 0.4 mg/ml 1 ml VIAL IV PRN (09:13)
[2023-05-01] MEDS ORDERED: HYDROmorphone 1 MG/1 ML SYRINGE IV PRN (09:13)
[2023-05-01] MEDS ORDERED: fentaNYL 100 mcg/2 ml 50 MCG/ML VIAL IV PRN (09:13)
[2023-05-01] MEDS ORDERED: Ondansetron 4 mg VIAL 2 MG/ML 2 ml VIAL IV PRN ×2 (09:13→13:08)
[2023-05-01] MEDS ORDERED: Acetaminophen IV 1 GM/100ML 1,000 MG/100 ML BAG IV PRN (09:13)
[2023-05-01] MEDS ORDERED: Remifentanil 2 MG VIAL ONE (10:11)
[2023-05-01] MEDS ORDERED: Glycopyrrolate IV 0.2 MG/ML 1 ML VIAL ONE (10:13)
[2023-05-01] MEDS ORDERED: Lactulose 30 ml UDC PO PRN (13:08)
[2023-05-01] MEDS ORDERED: Morphine 2 MG/ML SYRINGE IV PRN (13:08)
[2023-05-01] MEDS ORDERED: Ondansetron ODT 4 mg TAB 4 MG TAB PO PRN (13:08)
[2023-05-01] MEDS ORDERED: Magnesium Hydroxide LIQ 30 ML UDC PO PRN (13:08)
[2023-05-01] MEDS: ceFAZolin 1 GM ADVAN 1 GM in NS 0.9% 50 ML 50 ML IVPB SCH ×2 (16:44→23:32)
[2023-05-01] MEDS: Mometasone/Formoter 200/5 MDI INH SCH (19:39)
[2023-05-01] MEDS: Magnesium Hydroxide LIQ 30 ML UDC PO SCH (20:55)
[2023-05-01] MEDS: Saline NASAL SPRAY 0.65% BTL BOTH NARES PRN (23:44)
[2023-05-02] MEDS: Mometasone/Formoter 200/5 MDI INH SCH ×2 (08:28→20:44)
[2023-05-02] MEDS: Potassium Chlor 10 meq TAB PO SCH (09:36)
[2023-05-02] MEDS: Cholecalciferol (VIT D3) 1,000 unit TAB PO SCH (09:36)
[2023-05-02] MEDS: Vitamin THERAPEUTIC TAB PO SCH (09:39)
[2023-05-02] MEDS: Magnesium Hydroxide LIQ 30 ML UDC PO SCH ×2 (09:40→21:59)
[2023-05-02] MEDS: ceFAZolin 1 GM ADVAN 1 GM in NS 0.9% 50 ML 50 ML IVPB SCH (09:41)
[2023-05-02 10:56] LABS: Creatinine, Serum 1.03 mg/dL (0.51-0.95); Potassium 3.5 mmol/L (3.5-5.0)
[2023-05-02 10:57] LABS: Calcium 8.7 mg/dL (8.6-10.3)
[2023-05-02 11:40] LABS: Mean Platelet Volume 8.9 fL (7.5-11.2); Platelet Count 220 10^3/uL (150-450)
[2023-05-02] MEDS: Enoxaparin 40 MG/0.4 ML SYR SUBCUT SCH (12:51)
[2023-05-03] MEDS: Saline NASAL SPRAY 0.65% BTL BOTH NARES PRN (04:40)
[2023-05-03 08:03] LABS: Platelet Count 223 10^3/uL (150-450)
[2023-05-03 08:24] LABS: Calcium 8.8 mg/dL (8.6-10.3); Creatinine, Serum 0.87 mg/dL (0.51-0.95); Potassium 3.8 mmol/L (3.5-5.0); eGFR CKD-EPI 73.4 (>60)
[2023-05-03] MEDS: Mometasone/Formoter 200/5 MDI INH SCH (08:35)
[2023-05-03] MEDS: Potassium Chlor 10 meq TAB PO SCH (08:56)
[2023-05-03] MEDS: Vitamin THERAPEUTIC TAB PO SCH (08:56)
[2023-05-03] MEDS: Cholecalciferol (VIT D3) 1,000 unit TAB PO SCH (08:56)
[2023-05-03] MEDS: Magnesium Hydroxide LIQ 30 ML UDC PO SCH (08:57)
[2023-05-03] MEDS: Enoxaparin 40 MG/0.4 ML SYR SUBCUT SCH (11:39)
[2023-05-03 14:09] VITALS: BP 115/74
== END 2023-05-03 16:35 ==
LOC: OR 05:30 → EDSTATUS 09:30 → INTOOBSV 13:14 → SSU 13:14
PROVIDERS: ADMIT Orthopaedic Surgery; ATTEND Orthopaedic Surgery